=== PATIENT | male | born 1965 | race Caucasian/White ===

== ENCOUNTER 2018-07-23 05:41 | Day surgery (SDC) | payer OTHER ==
[~2018-07-23] VITALS: Ht 182.9 cm; Wt 100.2 kg
[2018-07-23 06:56] VITALS: Ht 182.9 cm; Wt 100.2 kg
[2018-07-23 07:04] VITALS: BP 126/80; PULSE 76; RESP 16
--- NOTE | 2018-07-23 07:40 | PREAC ---
Date/Time of Note Date/Time of Note DATE: 07/23/18 TIME: 07:37 Anesthesia Eval and Record Evaluation Time Pre-Procedure Interview DATE: 07/23/18 TIME: 07:37 Age 52 Sex male NPO: 8 hrs Preoperative diagnosis Dysphagia, colon screening Planned procedure EGD and Colonoscopy Past Medical History Past Medical History: Includes Surgery & Anesthesia Issues No known issue Meds Anticoagulation: No Beta Mathew within 24 hr: No Reason Beta Mathew not given: Pt. not on B-Mathew Reported Medications [None] No Conflict Check 07/23/18 Meds reviewed: Yes Allergies Coded Allergies: Penicillins (Verified Allergy, Unknown, 07/23/18) Allergies Reviewed: Yes Labs/Studies Labs Reviewed: Reviewed by anesthesiologist test: N/A Studies: ECG Pre-procedure Exam Last vitals Vital Signs Date Temp Pulse Resp B/P (MAP) Pulse Ox O2 O2 Flow FiO2 Time Delivery Rate 07/23/18 98.2 76 16 126/80 98 Room Air 07:04 (95) Airway: Adequate mouth opening, Adequate thyromental dist Mallampati: Mallampati II Teeth: Normal Lung: Normal Heart: Normal ASA Physical Status ASA physical status: 2 Emergency: None Planned Anesthetic General/MAC: MAC Planned Pain Management Parenteral pain med Pre-operative Attestations Prior to commencing anesthesia and surgery, the patient was re-evaluated, there was verification of: *The patient's identity *The results of appropriate recent lab work and preoperative vital signs *The above evaluation not changing prior to induction *Anesthetic plan, risk benefits, alternative and complications discussed with patient/family; questions answered; patient/family understands, accepts and wishes to proceed. JESI MORALES MD Jul 23, 2018 07:40
[2018-07-23] MEDS ORDERED: PROPOFOL 60 ML ONE (07:50)
[2018-07-23] MEDS ORDERED: LIDOCAINE 2% (SDV) 5 ML INJ ONE (07:50)
--- NOTE | 2018-07-23 08:37 | PAC ---
Date/Time of Note Date/Time of Note DATE: 07/23/18 TIME: 08:36 Post-Anesthesia Notes Post-Anesthesia Note Last documented vital signs Vital Signs Date Temp Pulse Resp B/P (MAP) Pulse Ox O2 O2 Flow FiO2 Time Delivery Rate 07/23/18 98.2 76 16 126/80 98 Room Air 07:04 (95) Activity: WNL Respiratory function: WNL Cardiovascular function: WNL Mental status: Baseline Pain reasonably controlled: Yes Hydration appropriate: Yes Nausea/Vomiting absent: Yes Comments BP:106/54, P:78, Spo2:100%, T:98,8 JESI MORALES MD Jul 23, 2018 08:37
[2018-07-23 09:10] VITALS: BP 110/65; PULSE 74; RESP 12
== END 2018-07-23 11:20 | disposition home or self-care (01) ==
LOC: GIL 05:41
PROVIDERS: ATTEND Internal Medicine Gastroenterology
DX: Z12.11 Encounter for screening for malignant neoplasm of colon (principal); K29.60 Other gastritis without bleeding; K20.8 Other esophagitis; K64.4 Residual hemorrhoidal skin tags; K57.30 Diverticulosis of large intestine without perforation or abscess without bleeding
CPT/HCPCS: 43239; 45378; 88305; 88312; Z7610